=== PATIENT | female | born 1945 | race Caucasian/White ===

== ENCOUNTER → 2018-07-02 | Outpatient (CLI) | payer MEDICARE, OTHER | LOC: M.RAD 15:23 | DX: S42.454A Nondisplaced fracture of lateral condyle of right humerus, initial encounter for closed fracture (principal); M79.601 Pain in right arm; W19.XXXA Unspecified fall, initial encounter; Y93.89 Activity, other specified; Y92.89 Other specified places as the place of occurrence of the external cause; Y99.8 Other external cause status ==